=== PATIENT | female | born 1975 | race Caucasian/White ===

== ENCOUNTER → 2016-11-01 | Outpatient (CLI) | payer SELFPAY ==
[2016-11-01 14:52] LABS: CH 27.5; CHCM 32.9; HCT 40.8 % (34.0-46.0); HDW 2.59; HGB 13.8 gm/dL (11.4-16.0); MCH 28.3 pg (25.0-35.0); MCHC 33.7 g/dL (31.0-37.0); MCV 83.8 fL (80.0-100.0); Mean Platelet Volume 6.5; RBC 4.87 m/uL (3.80-5.40); RDW 13.3 % (11.5-15.5); WBC 8.6 k/uL (3.8-10.6)
== END | disposition home or self-care (01) ==
LOC: LABWHC1 14:18
PROVIDERS: ATTEND Obstetrics & Gynecology
DX: N93.8 Other specified abnormal uterine and vaginal bleeding (principal)
CPT/HCPCS: 36415; 84443; 85027

== ENCOUNTER 2016-11-30 11:22 | Day surgery (SDC) | payer OTHER ==
[2016-11-24 10:24] VITALS: BMI 30.7
--- NOTE | 2016-11-29 17:25 | P.HPOB ---
History of Present Illness H&P Date: 11/29/16 Chief Complaint: Menorrhagia with irregular cycle This is a 41-year-old female 1 para 1 who presents with irregular spotting and bleeding that has been going on almost a month now. She did attempt to take Provera but continued to bleed. She has been taking control pills continuously and skipping the pill free week. Pelvic ultrasound showed a uterus measuring 11 x 5 x 6.4 cm with multiple hypoechoic nodules consistent with fibroids with the largest measuring 2.8 cm. Endometrial stripe was 9 mm. The left ovary was normal sized in the right ovary was not visualized. The patient has consented to dilation and curettage with hysteroscopy. Obstetrical history: . History of 1 twin delivery at 28 weeks. Gynecologic history: No history of sexual transmitted diseases. Review of Systems Constitutional: Reports fatigue, Reports night sweats Eyes: denies blurred vision, denies pain Ears, nose, mouth and throat: Denies headache, Denies sore throat Cardiovascular: Reports chest pain (Occasional), Denies shortness of breath Respiratory: Denies cough Gastrointestinal: Reports abdominal pain (Cramping) Genitourinary: Reports dysmenorrhea Menstruation: Reports menses 8 or > days, Reports period spotting Musculoskeletal: Reports low back pain Neurological: Reports headaches Psychiatric: Reports anxiety, Reports depression Past Medical History Past Medical History: Hypertension Additional Past Medical History / Comment(s): "excessive (vaginal) bleeding"; migraine headaches; polycystic ovarian disease History of Any Multi-Drug Resistant Organisms: None Reported Past Surgical History: Section Additional Past Surgical History / Comment(s): D&C; laparoscopy with D&C in 2001 ; cerclage; Lasik eye surgery Past Anesthesia/Blood Transfusion Reactions: No Reported Reaction Past Psychological History: Anxiety, Depression Smoking Status: Never smoker Past Alcohol Use History: Occasional Past Drug Use History: None Reported - Past Family History Father Family Medical History: Cancer Additional Family Medical History / Comment(s): skin cancer Medications and Allergies Home Medications Medication Instructions Recorded Confirmed Type Lisinopril [Zestril] 2.5 mg PO DAILY 09/16/13 11/24/16 History Aviane 1 tab PO DAILY 11/24/16 11/24/16 History Famotidine 10 mg PO DAILY 11/24/16 11/24/16 History Ibuprofen [Motrin] 800 mg PO BID 11/24/16 11/24/16 History diphenhydrAMINE [Benadryl] 25 mg PO HS 11/24/16 11/24/16 History Allergies Allergy/AdvReac Type Severity Reaction Status Date / Time celecoxib [From Celebrex] Allergy joint Verified 11/24/16 10:03 stiffness codeine Allergy Unknown Verified 11/24/16 10:03 Exam Osteopathic Statement: *. No significant issues noted on an osteopathic structural exam other than those noted in the History and Physical/Consult. HEENT: Within normal limits Heart: Regular rate and rhythm Lungs: Clear to auscultation bilaterally Abdomen: Soft, nontender Pelvic exam: Uterus is slightly enlarged, nontender, with no adnexal masses palpated. Bloody vaginal discharge is noted. Extremities: Negative Homans Assessment and Plan (1) Menorrhagia with irregular cycle Status: Acute Plan: Proceed with dilation and curettage with hysteroscopy. I have discussed the risks, benefits, and alternative therapies for the above- mentioned procedure and for both sedation/anesthesia as well as necessary blood products administration, if indicated, as they pertain to this patient. The patient has indicated her understanding and acceptance of the risks and procedures discussed.
[~2016-11-30 11:22] MED LIST: DEXAMETHASONE SOD PHOSPHATE 10 MG/ML 1 ML VIAL IV ONE; HYDROmorphone 1 MG/ML 1 ML SYRINGE IVP PRN; LACTATED RINGERS 1,000 ML IV SCH; LIDOCAINE 1% 20 ML VIAL (10MG/ML) FOR IV START INTRADERMA PRN; MIDAZOLAM 2 MG/2 ML VIAL IV PRN; ONDANSETRON 4 MG/2 ML VIAL IVP ONE; Pre Op ABX Message 1 EACH MISC MISCELLANE ONE; SCOPOLAMINE 1.5MG/72HR PATCH TRANSDERM ONE
[2016-11-30] MEDS ORDERED: PROPOFOL 10 MG/ML 20 ML VIAL IV ONE (12:41)
[2016-11-30] MEDS ORDERED: SUCCINYLCHOLINE CHLORIDE VIAL 200 MG/10 ML VIAL IV ONE (12:41)
[2016-11-30] MEDS ORDERED: KETOROLAC 30 MG/ML 1 ML VIAL ONE (12:41)
[2016-11-30] MEDS ORDERED: LIDOCAINE 1% INJ 10MG/ML (20 ML MDV) ONE (12:41)
[2016-11-30] MEDS ORDERED: fentaNYL (PF) 50 MCG/ML 2 ML AMP ONE (12:41)
[2016-11-30] MEDS ORDERED: MIDAZOLAM 2 MG/2 ML VIAL ONE (12:41)
[2016-11-30 13:19] VITALS: TEMP 96.8
--- NOTE | 2016-11-30 13:39 | P.OP ---
Date of Procedure: 11/30/16 Preoperative Diagnosis: Menorrhagia with irregular cycle Postoperative Diagnosis: Same Procedure(s) Performed: Hysteroscopy with dilation and curettage Implants: Anesthesia: GEORGEA Surgeon: Supriya Moctezuma Estimated Blood Loss (ml): 5 Pathology: other (Endometrial curettings) Condition: stable Disposition: same day Indications for Procedure: This is a 41-year-old female 1 para 1 who presents with irregular spotting and bleeding that has been going on almost a month now. She did attempt to take Provera but continued to bleed. She has been taking control pills continuously and skipping the pill free week. Pelvic ultrasound showed a uterus measuring 11 x 5 x 6.4 cm with multiple hypoechoic nodules consistent with fibroids with the largest measuring 2.8 cm. Endometrial stripe was 9 mm. The left ovary was normal sized in the right ovary was not visualized. The patient has consented to dilation and curettage with hysteroscopy. Operative Findings: Uterus is anteverted, with no adnexal masses palpated. Uterus is sounded to 10 cm. Upon hysteroscopy, both tubal ostia are visualized. There is a slight dyssynchronous endometrial pattern noted with possible small polyps noted. There is also an irregular contour especially on the posterior wall during curetting. A minimal to moderate amount of tissue is obtained. Description of Procedure: The patient is taken to the operating room where she is placed in the dorsal lithotomy position. She is prepped and draped in the normal sterile fashion. Bladder is drained with a catheter and then removed. Examination is performed under anesthesia. Uterus is sounded be anteverted and slightly enlarged with no adnexal masses palpated. Next a weighted speculum was placed in the patient' s vagina and a right angle retractor was used to visualize the cervix. The and her lip of the cervix is grasped with a single-tooth tenaculum. Uterus is sounded to 10 cm. Next the cervix is gently dilated with Collier dilators until a hysteroscope could be passed. Hysteroscopy is performed using a normal saline. The above noted findings are made and pictures are taken. The hysteroscope was then withdrawn. The cervix is gently dilated further until a polyp forceps could be introduced. Minimal amount of tissue is obtained with polyp forceps. Next a medium-size sharp curet was introduced and sharp curettage was performed until a gritty texture was noted. There was an irregular contour noted on the posterior border. A minimal to moderate amount of tissue was obtained. The specimen was sent to pathology. The single-tooth tenaculum was removed. Minimal bleeding was noted. All sponge and needle counts are correct. The patient is then taken to recovery room in stable condition.
[2016-11-30] MEDS ORDERED: LACTATED RINGERS 1,000 ML IV ONE (13:44)
[2016-11-30] MEDS ORDERED: ACETAMINOPHEN TAB 325 MG TAB PO ONE (14:17)
[2016-11-30 14:38] VITALS: BP 130/80; PULSE 81; RESP 18
== END 2016-11-30 15:02 | disposition home or self-care (01) ==
LOC: OR 11:22
PROVIDERS: ATTEND Obstetrics & Gynecology
DX: N92.1 Excessive and frequent menstruation with irregular cycle (principal); E28.2 Polycystic ovarian syndrome; I10 Essential (primary) hypertension; G43.909 Migraine, unspecified, not intractable, without status migrainosus; F41.9 Anxiety disorder, unspecified; F32.9 Major depressive disorder, single episode, unspecified; K21.9 Gastro-esophageal reflux disease without esophagitis; Z79.3 Long term (current) use of hormonal contraceptives; Z79.1 Long term (current) use of non-steroidal anti-inflammatories (NSAID); Z79.899 Other long term (current) drug therapy; Z88.5 Allergy status to narcotic agent; Z88.8 Allergy status to other drugs, medicaments and biological substances
CPT/HCPCS: 81025; 88305; 58558; J2250; J0330; J1100; J2405; J2001; J3010; J1885; J2704

== ENCOUNTER → 2017-01-24 | Outpatient (CLI) | payer OTHER ==
[2017-01-25 01:44] LABS: Treponemal Ab Non-Reactive (Non-Reactive)
== END | disposition home or self-care (01) ==
LOC: LABWHC1 16:24
PROVIDERS: ATTEND Obstetrics & Gynecology
DX: Z11.3 Encounter for screening for infections with a predominantly sexual mode of transmission (principal)
CPT/HCPCS: 36415; 86780; 87390

== ENCOUNTER → 2017-06-30 | Outpatient (CLI) | payer OTHER ==
[2017-06-30 11:23] LABS: Basophils % (A) 0 %; Eosinophils # (A) 0.1 k/uL (0-0.7); Eosinophils % (A) 1 %; HCT 43.1 % (34.0-46.0); HGB 13.9 gm/dL (11.4-16.0); Lymphocytes # (A) 1.1 k/uL (1.0-4.8); Lymphocytes % (A) 13 %; MCH 27.4 pg (25.0-35.0); MCHC 32.2 g/dL (31.0-37.0); MCV 85.1 fL (80.0-100.0); Mean Platelet Volume 6.2; Monocytes # (A) 0.4 k/uL (0-1.0); Monocytes % (A) 5 %; Neutrophils # (A) 6.3 k/uL (1.3-7.7); Neutrophils % (A) 78 %; Platelet Count 338 k/uL (150-450); RBC 5.06 m/uL (3.80-5.40); RDW 12.5 % (11.5-15.5); WBC 8.1 k/uL (3.8-10.6)
[2017-06-30 11:39] LABS: ALT 27 U/L (9-52); AST 23 U/L (14-36); Albumin 3.7 g/dL (3.5-5.0); Alkaline Phosphatase 87 U/L (38-126); Anion Gap 8 mmol/L; Blood Urea Nitrogen 20 mg/dL (7-17); Calcium 9.6 mg/dL (8.4-10.2); Carbon Dioxide 28 mmol/L (22-30); Chloride 104 mmol/L (98-107); Cholesterol 201 mg/dL (<200); Glucose 85 mg/dL (74-99); HDL Cholesterol 53 mg/dL (40-60); LDL Cholesterol,Calculated 117 mg/dL (0-99); Potassium 4.9 mmol/L (3.5-5.1); Sodium 140 mmol/L (137-145); Total Bilirubin 0.4 mg/dL (0.2-1.3); Total Protein 6.7 g/dL (6.3-8.2); Triglycerides 153 mg/dL (<150)
[2017-06-30 11:53] LABS: T4, Free (Free Thyroxine) 1.29 ng/dL (0.78-2.19)
== END | disposition home or self-care (01) ==
LOC: LABWHC1 10:13
PROVIDERS: ATTEND Internal Medicine
DX: I10 Essential (primary) hypertension (principal); Z13.220 Encounter for screening for lipoid disorders; Z13.228 Encounter for screening for other metabolic disorders
CPT/HCPCS: 36415; 80053; 80061; 84439; 84443; 85025

== ENCOUNTER → 2017-08-27 | Outpatient (CLI) | payer OTHER ==
--- NOTE | 2017-08-27 15:46 | XR ---
EXAMINATION TYPE: XR foot complete LT DATE OF EXAM: 08/27/2017 CLINICAL HISTORY: Second through fourth metatarsal pain for one month with no known injury. TECHNIQUE: Frontal, lateral, and oblique images of the left foot are obtained. COMPARISON: None FINDINGS: There is no acute fracture/dislocation evident in the left foot. The joint spaces in the left foot appear within normal limits. The overlying soft tissue appears unremarkable. No periosteal reaction or cortical thickening is noted. There is incidental note of an os naviculare. IMPRESSION: There is no acute fracture or dislocation in the left foot. If there is further clinical concern MR could be performed increased sensitivity of stress fracture or bone marrow altering proce ss.
== END | disposition home or self-care (01) ==
LOC: RADXRYALE 15:21
PROVIDERS: ATTEND Internal Medicine
DX: M79.672 Pain in left foot (principal)

== ENCOUNTER → 2017-10-08 | Outpatient (CLI) | payer OTHER ==
[2017-10-08 11:08] LABS: Basophils % (A) 0 %; Eosinophils # (A) 0.1 k/uL (0-0.7); Eosinophils % (A) 1 %; HCT 39.9 % (34.0-46.0); HGB 13.6 gm/dL (11.4-16.0); Lymphocytes # (A) 1.1 k/uL (1.0-4.8); Lymphocytes % (A) 17 %; MCH 28.2 pg (25.0-35.0); MCV 82.9 fL (80.0-100.0); Mean Platelet Volume 5.9; Monocytes # (A) 0.4 k/uL (0-1.0); Monocytes % (A) 6 %; Neutrophils # (A) 5.1 k/uL (1.3-7.7); Neutrophils % (A) 74 %; Platelet Count 277 k/uL (150-450); RBC 4.81 m/uL (3.80-5.40); RDW 13.6 % (11.5-15.5); WBC 6.8 k/uL (3.8-10.6)
[2017-10-08 11:30] LABS: Anion Gap 12 mmol/L; Blood Urea Nitrogen 13 mg/dL (7-17); Calcium 9.2 mg/dL (8.4-10.2); Carbon Dioxide 25 mmol/L (22-30); Chloride 104 mmol/L (98-107); Glucose 84 mg/dL (74-99); Potassium 4.7 mmol/L (3.5-5.1); Sodium 141 mmol/L (137-145)
== END | disposition home or self-care (01) ==
LOC: LABPAT 09:44
PROVIDERS: ATTEND Obstetrics & Gynecology
DX: Z01.818 Encounter for other preprocedural examination (principal); Z01.812 Encounter for preprocedural laboratory examination; I10 Essential (primary) hypertension
CPT/HCPCS: 36415; 80048; 85025; 93005

== ENCOUNTER 2017-10-11 05:37 | Observation (INO) | payer OTHER ==
[2017-10-03 10:48] VITALS: BMI 30.2
--- NOTE | 2017-10-10 16:47 | P.HPOB ---
History of Present Illness H&P Date: 10/10/17 Chief Complaint: menorrhagia 42-year-old presents for total laparoscopic hysterectomy with da Ruddy and diagnostic cystoscopy, possible total abdominal hysterectomy bilateral salpingo- oophorectomy. She has a fibroid uterus with menorrhagia and dysmenorrhea. Review of Systems All systems: negative Constitutional: Denies chills, Denies fever Eyes: denies blurred vision, denies pain Ears, nose, mouth and throat: Denies headache, Denies sore throat Cardiovascular: Denies chest pain, Denies shortness of breath Respiratory: Denies cough Gastrointestinal: Denies abdominal pain, Denies diarrhea, Denies nausea, Denies vomiting Genitourinary: Denies dysuria, Denies hematuria Musculoskeletal: Denies myalgias Integumentary: Denies pruritus, Denies rash Neurological: Denies numbness, Denies weakness Psychiatric: Denies anxiety, Denies depression Endocrine: Denies fatigue, Denies weight change Past Medical History Past Medical History: GERD/Reflux, Hypertension Additional Past Medical History / Comment(s): migraine headaches; polycystic ovarian disease History of Any Multi-Drug Resistant Organisms: None Reported Past Surgical History: Section Additional Past Surgical History / Comment(s): D&C; laparoscopy with D&C, cerclage; Lasik eye surgery Past Anesthesia/Blood Transfusion Reactions: No Reported Reaction Smoking Status: Never smoker - Past Family History Father Family Medical History: Cancer Additional Family Medical History / Comment(s): skin cancer Medications and Allergies Home Medications Medication Instructions Recorded Confirmed Type Lisinopril [Zestril] 2.5 mg PO DAILY 09/16/13 10/03/17 History Famotidine 10 mg PO BID 11/24/16 10/03/17 History Ibuprofen [Motrin] 800 mg PO BID 11/24/16 10/03/17 History diphenhydrAMINE [Benadryl] 25 mg PO HS PRN 11/24/16 10/03/17 History Norethindrone-E.estradiol-Iron 1 each PO DAILY 10/03/17 10/03/17 History [Junel Fe 1 mg-20 Mcg Tablet] Allergies Allergy/AdvReac Type Severity Reaction Status Date / Time celecoxib [From Celebrex] Allergy joint Verified 10/03/17 09:59 stiffness codeine Allergy Vomiting Verified 10/03/17 09:59 Exam Osteopathic Statement: *. No significant issues noted on an osteopathic structural exam other than those noted in the History and Physical/Consult. Heart: Regular rate and rhythm Lungs: Clear to auscultation bilaterally Abdomen: Soft, nontender Extremities: Negative Homans sign Assessment and Plan (1) Fibroid uterus Status: Acute Code(s): D25.9 - LEIOMYOMA OF UTERUS, UNSPECIFIED SNOMED Code( s): 85615298 (2) Menorrhagia with irregular cycle Status: Acute Code(s): N92.1 - EXCESSIVE AND FREQUENT MENSTRUATION WITH IRREGULAR CYCLE SNOMED Code(s): 125451888 Plan: 1. Total laparoscopic hysterectomy with da Ruddy and diagnostic cystoscopy, possible total abdominal hysterectomy bilateral salpingo-oophorectomy.
[~2017-10-11 05:37] MED LIST changes: -DEXAMETHASONE SOD PHOSPHATE 10 MG/ML 1 ML VIAL IV ONE; -HYDROmorphone 1 MG/ML 1 ML SYRINGE IVP PRN; -LACTATED RINGERS 1,000 ML IV SCH; -LIDOCAINE 1% 20 ML VIAL (10MG/ML) FOR IV START INTRADERMA PRN; -MIDAZOLAM 2 MG/2 ML VIAL IV PRN; -ONDANSETRON 4 MG/2 ML VIAL IVP ONE; -Pre Op ABX Message 1 EACH MISC MISCELLANE ONE; -SCOPOLAMINE 1.5MG/72HR PATCH TRANSDERM ONE; +ceFAZolin IN SWFI 2 GM/20 ML SYRINGE IVP ONE
[2017-10-11] MEDS ORDERED: MORPHINE SULFATE 4 MG/ML SYRINGE IV PRN (05:43)
[2017-10-11] MEDS ORDERED: MIDAZOLAM 2 MG/2 ML VIAL IV PRN (05:43)
[2017-10-11] MEDS ORDERED: ONDANSETRON 4 MG/2 ML VIAL IVP ONE (05:43)
[2017-10-11] MEDS ORDERED: DEXAMETHASONE SOD PHOSPHATE 10 MG/ML 1 ML VIAL IV ONE (05:43)
[2017-10-11 06:19] VITALS: RESP 16
[2017-10-11] MEDS: LACTATED RINGERS 1,000 ML IV SCH ×2 (06:28→06:35)
[2017-10-11] MEDS ORDERED: LIDOCAINE 1% 20 ML VIAL (10MG/ML) FOR IV START INTRADERMA ONE ×2 (06:35→06:36)
[2017-10-11] MEDS ORDERED: NEOSTIGMINE 1 MG/ML 10 ML VIAL ONE ×2 (07:09)
[2017-10-11] MEDS ORDERED: PROPOFOL 10 MG/ML 20 ML VIAL IV ONE ×2 (07:09)
[2017-10-11] MEDS ORDERED: ROCURONIUM BROMIDE 10 MG/ML 10 ML VIAL IV ONE ×2 (07:09)
[2017-10-11] MEDS ORDERED: fentaNYL (PF) 50 MCG/ML 2 ML AMP ONE ×2 (07:09)
[2017-10-11] MEDS ORDERED: ACETAMINOPHEN IV (For NPO) 1,000 MG/100 ML VIAL ONE ×2 (07:09)
[2017-10-11] MEDS ORDERED: MIDAZOLAM 2 MG/2 ML VIAL ONE ×2 (07:09)
[2017-10-11] MEDS ORDERED: SUCCINYLCHOLINE CHLORIDE VIAL 200 MG/10 ML VIAL IV ONE (07:09)
[2017-10-11] MEDS ORDERED: KETOROLAC 30 MG/ML 1 ML VIAL ONE ×2 (07:09)
[2017-10-11] MEDS ORDERED: GLYCOPYRROLATE 0.2 MG/ML 2 ML VIAL ONE ×2 (07:09)
[2017-10-11] MEDS ORDERED: SUCCINYLCHOLINE CHLORIDE 100 MG/5 ML SYR IV ONE (07:09)
[2017-10-11] MEDS ORDERED: LIDOCAINE 1% INJ 10MG/ML (20 ML MDV) ONE ×2 (07:09)
[2017-10-11] MEDS ORDERED: BUPIVACAINE (PF) 0.5% 30 ML VIAL SQ ONE (07:54)
[2017-10-11] MEDS: HYDROmorphone 0.5 MG/0.5 ML SYRINGE IVP PRN ×3 (09:02→09:32)
--- NOTE | 2017-10-11 09:26 | P.OP ---
Date of Procedure: 10/11/17 Preoperative Diagnosis: 1. Menorrhagia 2. Fibroid uterus Postoperative Diagnosis: Same Procedure(s) Performed: Total laparoscopic hysterectomy with da Ruddy and diagnostic cystoscopy Anesthesia: AUBREY Surgeon: Gloria Méndez Taker Down #1: [place] Estimated Blood Loss (ml): 10 IV fluids (ml): 700 Urine output (ml): 50 Pathology: other (Uterus and cervix) Condition: stable Disposition: PACU Description of Procedure: Patient taken the operating room where general anesthesia was obtained without difficulty. She is prepped and draped in normal sterile fashion dorsal lithotomy position, legs placed in the Fredy stirrups. Weighted speculum placed in the vagina and the anterior lip the cervix was grasped with single- tooth tenaculum. The uterus sounded to 10 cm and the cervix diameter was 3 cm. The appropriate manipulator tip and ring were placed on the Jacinda manipulator. The Jacinda manipulator was then placed in the uterus. Mccann catheter was also placed. Attention was then turned to the abdomen and gloves were changed. A 5 mm supraumbilical incision was made the scalpel and a 5 mm optical trocar was placed under direct visualization. 10 cm to the right of this and 2 cm down a 5 mm incision was made and 8 mm da Ruddy port was placed under direct visualization. Same measurements on the opposite side of the patient's abdomen , the 5 mm incision was made and 8 mm da Ruddy port was placed under direct visualization. In the left upper quadrant a 10 mm incision was made and a 10 mm optical trocar was placed under direct visualization. The 5 mm optical trocar was then replaced with the 8 mm da Ruddy camera port. The robot was docked on patient's right side. The camera was introduced and then the monopolar curved scissor and [place] bipolar placed under direct visualization. I broke scrub and went to the physician console. The left utero-ovarian igament was cauterized with the [place] bipolar and cut with monopolar curved scissors. The left round ligament was cauterized with the [place] bipolar and cut with monopolar curved scissors. The posterior leaf of the broad ligament was taken down using the monopolar curved scissors. Anterior leaf of the broad ligament was then taken down using the monopolar curved scissors. The uterine artery was cauterized with the [place] bipolar and cut with monopolar curved scissors. The bladder flap was then started using the monopolar curved scissors. Attention was then turned to the right side of the patient's anatomy and the right utero-ovarian ligament was cauterized with the [place] bipolar and cut with monopolar curved scissors. The right round ligament was cauterized with the [place] bipolar and cut with monopolar curved scissors. Posterior leaf of the broad ligament was taken down using the monopolar curved scissors and the anterior leaf was taken down using the monopolar curved scissors. The uterine artery was cauterized the [place] bipolar cut with monopolar curved scissors. The bladder flap was then finished on this side. Anterior colpotomy was made using the monopolar curved scissors. The rest of the uterus was from the vaginal cuff by following the ring around with the monopolar curved scissors through the uterosacral ligaments back to the anterior portion. Once the uterus and cervix were amputated they were pulled through the vaginal cuff. Hemostasis was assured. The instruments were changed for the Cardier forcep and the jayce suture cut. The vaginal cuff was then closed using 2-O stratafix barbed suture in a running fashion. Hemostasis was again assured and the pelvis was irrigated. All instruments were removed from the abdomen and the robot was undocked. I scrubbed back in to perform a cystoscopy. There were jets from both ureteral orifices. The abdominal incisions were closed with 4-0 Vicryl in a subcuticular fashion. Patient tolerated the procedure well, sponge and instrument counts correct 2 and she was taken to recovery room in stable condition condition
[2017-10-11] MEDS ORDERED: METOCLOPRAMIDE 5 MG/ML 2 ML VIAL IVP PRN (10:10)
[2017-10-11] MEDS ORDERED: diphenhydrAMINE 50 MG/ML 1 ML VIAL IVP PRN (10:10)
[2017-10-11] MEDS ORDERED: LACTATED RINGERS 1,000 ML IV SCH (10:10)
[2017-10-11] MEDS ORDERED: diphenhydrAMINE 25 MG CAP PO PRN (10:10)
[2017-10-11] MEDS ORDERED: ONDANSETRON 4 MG/2 ML VIAL IVP PRN (10:10)
[2017-10-11] MEDS: SENNOSIDES-DOCUSATE SODIUM 1 EACH TAB PO SCH ×2 (10:51→20:51)
[2017-10-11] MEDS: LISINOPRIL 2.5 MG TAB PO SCH (10:52)
[2017-10-11] MEDS: FAMOTIDINE 20 MG TAB PO SCH (10:52)
[2017-10-11] MEDS: KETOROLAC 30 MG/ML 1 ML VIAL IVP PRN ×2 (14:02→19:14)
[2017-10-11] MEDS: SIMETHICONE 80 MG CHEWABLE PO PRN ×2 (15:59→20:50)
[2017-10-11 21:14] VITALS: BP 147/82; PULSE 77; TEMP 98.9
[2017-10-12 06:57] LABS: Basophils % (A) 0 %; Eosinophils # (A) 0.2 k/uL (0-0.7); Eosinophils % (A) 2 %; HCT 35.5 % (34.0-46.0); Lymphocytes # (A) 1.7 k/uL (1.0-4.8); Lymphocytes % (A) 16 %; MCH 27.6 pg (25.0-35.0); MCHC 33.8 g/dL (31.0-37.0); MCV 81.7 fL (80.0-100.0); Mean Platelet Volume 5.9; Monocytes # (A) 0.5 k/uL (0-1.0); Monocytes % (A) 5 %; Neutrophils # (A) 7.6 k/uL (1.3-7.7); Neutrophils % (A) 75 %; Platelet Count 283 k/uL (150-450); RBC 4.34 m/uL (3.80-5.40); RDW 13.1 % (11.5-15.5); WBC 10.1 k/uL (3.8-10.6)
[2017-10-12] MEDS ORDERED: HYDROcodone/APAP 5-325MG 1 EACH TAB PO PRN (07:10)
[2017-10-12] MEDS ORDERED: IBUPROFEN 600 MG TAB PO PRN (07:10)
--- NOTE | 2017-10-12 07:18 | P.DS ---
Providers Date of admission: 10/11/17 19:57 Expected date of discharge: 10/12/17 Attending physician: Gloria Méndez Primary care physician: Zita Sanches - Discharge Diagnosis(es) (1) Fibroid uterus Current Visit: Yes Status: Resolved (2) Menorrhagia with irregular cycle Current Visit: No Status: Resolved (3) History of robot-assisted laparoscopic hysterectomy Current Visit: Yes Status: Acute Hospital Course: Pt presented for TLH with da francisco. She underwent this procedure without complication. Her postop course was uneventful. She is voiding and passing flatus, ambulating and tolerating a regular diet. She will be discharged home POD #1 in stable condition to follow up with me in 2 weeks. Plan - Discharge Summary Discharge Rx Participant: Yes New Discharge Prescriptions: New HYDROcodone/APAP 5-325MG [Jayess 5-325] 1 - 2 each PO Q6HR PRN #24 tab PRN Reason: Pain Ibuprofen [Motrin] 600 mg PO Q6HR PRN #30 tab PRN Reason: Pain No Action Lisinopril [Zestril] 2.5 mg PO DAILY Famotidine 10 mg PO BID diphenhydrAMINE [Benadryl] 25 mg PO HS PRN PRN Reason: ALLERGY,SLEEP Ibuprofen [Motrin] 800 mg PO BID Norethindrone-E.estradiol-Iron [Junel Fe 1 mg-20 Mcg Tablet] 1 each PO DAILY Discharge Medication List Lisinopril [Zestril] 2.5 mg PO DAILY 09/16/13 [History] Famotidine 10 mg PO BID 11/24/16 [History] Ibuprofen [Motrin] 800 mg PO BID 11/24/16 [History] diphenhydrAMINE [Benadryl] 25 mg PO HS PRN 11/24/16 [History] Norethindrone-E.estradiol-Iron [Junel Fe 1 mg-20 Mcg Tablet] 1 each PO DAILY 10/15 [History] HYDROcodone/APAP 5-325MG [Jayess 5-325] 1 - 2 each PO Q6HR PRN #24 tab 10/12/17 [ Rx] Ibuprofen [Motrin] 600 mg PO Q6HR PRN #30 tab 10/12/17 [Rx] Follow up Appointment(s)/Referral(s): Gloria Méndez DO [Doctor of Osteopathic Medicine] - 2 Weeks Discharge Disposition: HOME SELF-CARE
[2017-10-12] MEDS: SENNOSIDES-DOCUSATE SODIUM 1 EACH TAB PO SCH (07:47)
[2017-10-12] MEDS: FAMOTIDINE 20 MG TAB PO SCH (07:47)
[2017-10-12] MEDS: LISINOPRIL 2.5 MG TAB PO SCH (07:47)
[2017-10-12] MEDS: SIMETHICONE 80 MG CHEWABLE PO PRN (08:45)
== END 2017-10-12 10:35 | disposition home or self-care (01) ==
LOC: OR 05:37 → 4FBP 08:44 → OR 19:57 → 4FBP 19:57
PROVIDERS: ADMIT Obstetrics & Gynecology; ATTEND Obstetrics & Gynecology
DX: D25.2 Subserosal leiomyoma of uterus (principal); N72 Inflammatory disease of cervix uteri; I10 Essential (primary) hypertension; K21.9 Gastro-esophageal reflux disease without esophagitis; E28.2 Polycystic ovarian syndrome; Z79.899 Other long term (current) drug therapy; Z79.1 Long term (current) use of non-steroidal anti-inflammatories (NSAID); Z79.3 Long term (current) use of hormonal contraceptives; Z88.8 Allergy status to other drugs, medicaments and biological substances; Z88.5 Allergy status to narcotic agent; Z80.8 Family history of malignant neoplasm of other organs or systems
CPT/HCPCS: 81025; 86900; 86901; 85025; 86850; 88307; 58572; G0378 ×2; J2250; J0330 ×2; J1100; J2710; J2405; J2001; J3010; J1885; J0131; J2704; J1170; J0690

== ENCOUNTER → 2020-11-29 | Outpatient (CLI) | payer BC ==
--- NOTE | 2020-12-06 10:39 | MM ---
Reason for exam: screening (asymptomatic). Last mammogram was performed 4 years and 3 months ago. Physical Findings: Nurse did not find any significant physical abnormalities on exam. MG Screening Mammo w CAD Bilateral CC and MLO view(s) were taken. Prior study comparison: August 14, 2016, mammogram, performed at [facility]. The breast tissue is heterogeneously dense. This may lower the sensitivity of mammography. Left breast asymmetric densities area more defined. ASSESSMENT: Incomplete: need additional imaging evaluation, BI-RAD 0 RECOMMENDATION: Special view mammogram of the left breast. (3D) If lesion persists on supplemental views, image directed ultrasound is recommended. [facility] will attempt to contact patient to return for supplemental views and ultrasound if indicated.
== END | disposition home or self-care (01) ==
LOC: RADMAMWWP 14:21
PROVIDERS: ATTEND Family Medicine
DX: Z12.31 Encounter for screening mammogram for malignant neoplasm of breast (principal)
CPT/HCPCS: 77067

== ENCOUNTER → 2020-12-16 | Outpatient (CLI) | payer BC ==
--- NOTE | 2020-12-16 10:31 | MM ---
Reason for exam: additional evaluation requested from abnormal screening. Last mammogram was performed 1 month ago. Physical Findings: Nurse did not find any significant physical abnormalities on exam. MG Work Up Mamm w CAD LT Spot compression CC, spot compression MLO, and ML view(s) were taken of the left breast. Prior study comparison: November 29, 2020, bilateral MG screening mammo w CAD. August 14, 2016, mammogram, performed at [facility]. The breast tissue is heterogeneously dense. This may lower the sensitivity of mammography. Residual focal asymmetry upper inner quadrant on spot views. Dense tissues are present. Lateral asymmetry does not persist. These results were verbally communicated with the patient and result sheet given to the patient on 12/16/20. ASSESSMENT: Incomplete: need additional imaging evaluation, BI-RAD 0 RECOMMENDATION: Ultrasound of the left breast. (superior half)
--- NOTE | 2020-12-16 10:33 | USB ---
Reason for exam: additional evaluation requested from abnormal screening. US Breast Workup Limited LT Left limited breast ultrasound including focal area of concern, retroareolar and axilla demonstrates a 6 x 5 x 7mm oval, cystic lesion at 11 o'clock, this may correspond to the mammographic focal asymmetry. Scanned 9-3 o'clock. These results were verbally communicated with the patient and result sheet given to the patient on 12/16/20. ASSESSMENT: Probably benign, BI-RAD 3 RECOMMENDATION: Follow-up diagnostic mammogram of the left breast in 6 months.
== END | disposition home or self-care (01) ==
LOC: RADMAMWWP 07:05
PROVIDERS: ATTEND Family Medicine
DX: R92.2 Inconclusive mammogram (principal); N60.02 Solitary cyst of left breast
CPT/HCPCS: 77065

== ENCOUNTER → 2021-08-26 | Outpatient (CLI) | payer OTHER ==
--- NOTE | 2021-08-26 12:59 | XR ---
EXAMINATION TYPE: XR hand complete LT DATE OF EXAM: 08/26/2021 CLINICAL HISTORY: Pain and bruising after injury worse over fifth finger TECHNIQUE: Frontal, lateral and oblique images of the left hand are obtained. COMPARISON: None. FINDINGS: There is no acute fracture/dislocation evident in the left hand with particular attention to the fifth finger. The joint spaces in the left hand appear within normal limits. The overlying so ft tissue appears unremarkable. IMPRESSION: There is no acute fracture or dislocation in the left hand.
== END | disposition home or self-care (01) ==
LOC: RADXRMAIN 12:36
PROVIDERS: ATTEND Emergency Medicine
DX: S60.222A Contusion of left hand, initial encounter (principal); X58.XXXA Exposure to other specified factors, initial encounter

== ENCOUNTER → 2021-10-24 | Outpatient (CLI) | payer BC ==
--- NOTE | 2021-10-25 05:11 | MR ---
EXAMINATION TYPE: MR cervical spine wo con DATE OF EXAM: 10/24/2021 COMPARISON: None HISTORY: Neck pain that radiates into right shoulder blade and into shoulder joint, numbness in finge rs and back pain. Multiplanar multiecho imaging of the cervical spine with no contrast. The cervical vertebra have normal alignment. There is some degenerative disc space narrowing througho ut the cervical spine. There is posterior mild disc herniations from C3 to C7 levels. Spinal canal me asures 7 mm at C5-6 which is the narrowest point. Cervical spinal cord shows no edema. Brainstem is i ntact. No compression fracture. No evidence of focal bone destruction. Facet joints are intact. C5-6 disc bulging and herniation is slightly to the left side impinging on the neural foramen. No oth er significant neural foraminal narrowing identified. IMPRESSION: Multilevel degenerative posterior disc bulging and herniation as above and at C5-6 this extends to th e left side. No significant spinal stenosis. No fracture.
== END | disposition home or self-care (01) ==
LOC: RADMRIMAIN 15:13
PROVIDERS: ATTEND Nurse Practitioner Family
DX: M50.323 Other cervical disc degeneration at C6-C7 level (principal)
CPT/HCPCS: 72141

== ENCOUNTER → 2021-10-26 | Outpatient (CLI) | payer BC ==
--- NOTE | 2021-10-26 08:03 | MM ---
Reason for Exam: Follow-up at short interval from prior study. Last screening mammogram was performed 10 month(s) ago. Patient History: Menarche at age 12. First Full-Term at age 30. Hysterectomy at age 42. Risk Values: Nano 5 year model risk: 1.0%. NCI Lifetime model risk: 11.6%. Prior Study Comparison: 08/14/2016 Screening Mammogram, [facility]. 11/29/2020 Bilateral Screening Mammogram, [facility]. 12/16/2020 Left Diagnostic Mammogram, [facility]. Tissue Density: Left: The breast tissue is heterogeneously dense. This may lower the sensitivity of mammography. Findings: Analyzed By CAD. No suspicious persistent density. No spiculated or lobular masses clusters of microcalcifications or architectural distortion. Overall Assessment: Benign, BI-RAD 2 Management: Screening Mammogram of both breasts in 6 months. A clinical breast exam by your physician is recommended on an annual basis and results should be correlated with mammographic findings. This exam should not preclude additional follow-up of suspicious palpable abnormalities. Results were given to the patient verbally at the time of exam. Electronically signed and approved by: Joel Guerin D.O. Radiologis
== END | disposition home or self-care (01) ==
LOC: RADMAMWWP 07:20
PROVIDERS: ATTEND Family Medicine
DX: R92.8 Other abnormal and inconclusive findings on diagnostic imaging of breast (principal)
CPT/HCPCS: 77065

== ENCOUNTER → 2021-12-08 | Outpatient (CLI) | payer BC ==
--- NOTE | 2021-12-08 09:52 | MR ---
EXAMINATION TYPE: MR shoulder RT wo con DATE OF EXAM: 12/08/2021 COMPARISON: None HISTORY: Right shoulder pain, hx of injury. TECHNIQUE: Multiplanar, multisequence imaging of the right shoulder is performed without contrast. FINDINGS: There is a small benign well-circumscribed intraosseous lesion proximal humerus with a narr ow zone transition. Measuring 1 cm in hypertrophic arthropathy of the AC joint. There is increased si gnal thickening of the anterior fibers of the insertion of the infraspinatus tendon measuring approxi mately 1.1 cm transverse dimension in the length of 15 mm compatible with severe tendinopathy and par tial intrasubstance tear. No true thickness tear retraction. There is increased signal and ill-definition of the posterior fibers of the insertion of the supraspi natus. Partial intrasubstance tearing measuring transverse diameter of 5 mm. No through thickness tea r or retraction. No definite insertion subscapularis tendons near complete thickness tear. Bony labrum are intact by non arthrogram technique. No sizable joint effusion. Glenohumeral ligaments . Biceps tendon appears to be dislocated from the bicipital groove. Intrasubstance signal seen in the r otator interval. IMPRESSION: 1. Severe tendinopathy of distal large and insertion of the infraspinatus anterior fibers with partia l intrasubstance tear but no through thickness tear or retraction. 2. Ill definition and increased signal involving the insertion of the posterior fibers of the suprasp inatus tendon measuring diameter 5 mm compatible with tendinopathy and partial non through thickness tear. 3. Findings suspicious for near complete through thickness tear subscapularis at its insertion. 4. Dislocation of the bicipital tendon relative to the bicipital groove. Additionally findings are guidry spicious for tendinosis of the bicipital tendon in the intracapsular portion. Interstitial tear or sp lit tear in the differential diagnosis. 5. Hypertrophic arthropathy of the AC joint results in impingement of the rotator cuff.
--- NOTE | 2021-12-09 07:25 | MR ---
EXAMINATION TYPE: MR brachial plexus RT wo con DATE OF EXAM: 12/08/2021 COMPARISON: MR scan cervical spine 10/24/2021 HISTORY: Right shoulder pain, hx of injury. Multiplanar multi echo imaging of the right-sided brachial plexus with no contrast. The cervical vertebra have normal alignment. There is mild posterior multilevel cervical disc bulging at C4-5 and C5-6 and C6-7. Spinal canal is narrowed to 7 mm at C5-6. There is no paraspinal mass. No evidence of a soft tissue mass. No sign of right-sided brachial plexus mass. IMPRESSION: Multilevel posterior disc bulging similar to the old MR scan. No evidence of focal brachial plexus ab normality.
== END | disposition home or self-care (01) ==
LOC: RADMRIMAIN 08:45
PROVIDERS: ATTEND Family Medicine
DX: M12.811 Other specific arthropathies, not elsewhere classified, right shoulder (principal)
CPT/HCPCS: 71550

== ENCOUNTER → 2022-03-30 | Outpatient (CLI) | payer BC ==
--- NOTE | 2022-03-31 12:43 | US ---
EXAMINATION TYPE: US thyroid st tissue head/neck DATE OF EXAM: 03/30/2022 COMPARISON: NONE CLINICAL HISTORY: E04.1 THYROID NODULE. MRI from outside facility showed left thyroid nodule. GLAND SIZE: Right Lobe: 4.9 x 1.7 x 1.5 cm Overall Parenchyma: homogenous Left Lobe: 4.6 x 1.5 x 1.2 cm Overall Parenchyma: homogeneous Isthmus Thickness: 0.3 cm NODULES RIGHT: # of nodules measured on right: 0 LEFT: # of nodules measured on left: 1 1. 0.7 X 0.6 x 0.3 cm, mid mid, cystic or almost completely cystic, anechoic nodule, which is wider than tall, with smooth margins, without echogenic foci. Prior size: No prior ultrasound ISTHMUS: # of nodules measured in the isthmus: 0 Bilateral neck scanned, no evidence of lymphadenopathy. IMPRESSION: No suspicious changes within the thyroid 2017 ACR TI-RADS LEVEL: TR-RADS 1 - BENIGN: No FNA *Highest TI-RADS level nodule reported
== END | disposition home or self-care (01) ==
LOC: RADUSWWP 15:51
PROVIDERS: ATTEND Family Medicine
DX: E04.1 Nontoxic single thyroid nodule (principal)
CPT/HCPCS: 76536

== ENCOUNTER 2022-09-13 12:55 | Emergency (ER) | payer OTHER, BC ==
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
[2022-09-13 14:17] VITALS: RESP 18
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
[2022-09-13 15:39] VITALS: BP 172/94; PULSE 70; TEMP 97.6
== END 2022-09-13 15:54 | disposition home or self-care (01) ==
LOC: EC 12:55
DX: M54.2 Cervicalgia (principal); I10 Essential (primary) hypertension; Z88.6 Allergy status to analgesic agent; Z88.8 Allergy status to other drugs, medicaments and biological substances; Z79.899 Other long term (current) drug therapy; V49.40XA Driver injured in collision with unspecified motor vehicles in traffic accident, initial encounter
CPT/HCPCS: 72050; 72070; 99284

== ENCOUNTER → 2023-03-21 | Outpatient (CLI) | payer BC ==
--- NOTE | 2023-03-21 12:33 | CA ---
Exercise Stress Test Report Name: Gay Ulrich Exam Date: 03/21/2023 11:02 Exam Location: [place] Stress Ht (in): 62 Wt (lb): 140 BSA: 1.64 Ordering Phys: Lauren Pride DO Referring Phys: Michelle Rodriguez [facility] Technologist: Ghanshyam Goyal Age: 47 Gender: F : 1975 Procedure CPT: Indications: R07.9; R94.31 ICD-10 Codes: Patient History: Medications: lisinopril, omeperazole Meds past 24 hrs: Pretest Chest Pain: STRESS TEST Riky Protocol Exercise Duration (min:sec): 07:[address] Depressions (mm): Angina Score: Garcia Score: Resting HR (bpm): 96 Peak HR (bpm): 152 Resting BP (mmHg): 145 / 89 Peak BP (mmHg): 170 / 79 MPHR: 174 Target HR: 148 % MPHR: 87 METS: 9.2 Total Dose: Peak Dose: Atropine: Double Product: 79452 BP Response: Stress Termination: Reached target heart rate Stress Symptoms: Slight tightness in chest Stress Summary: ECG ANALYSIS Resting ECG: Normal sinus rhythm normal axis normal intervals Stress ECG: Patient exercised on Riky protocol for 7 minutes achieving 8 mets 85% of predicted maximal heart rate without chest pain or diagnostic ST segment depression CONCLUSIONS Average exercise tolerance Negative stress test by EKG criteria Dr. Michael Moran MD (Electronically Signed) Final Date: 21 March 2023 12:32
== END | disposition home or self-care (01) ==
LOC: RADNMMAIN 10:43
PROVIDERS: ATTEND Family Medicine
DX: R07.9 Chest pain, unspecified (principal); R94.31 Abnormal electrocardiogram [ECG] [EKG]
CPT/HCPCS: 93017